=== PATIENT | male | born 1960 | race Caucasian/White ===

== ENCOUNTER 2018-11-03 04:12 | Emergency (ER) | payer BC, OTHER ==
[~2018-11-03] VITALS: Ht 167.6 cm; Wt 100.0 kg
[2018-11-03 04:20] VITALS: Ht 167.6 cm; Wt 100.0 kg
[2018-11-03] MEDS ORDERED: ATEN-51 PO (04:25)
[2018-11-03] MEDS ORDERED: ATENOLOL 25 MG TAB PO ONE (04:30)
--- NOTE | 2018-11-03 04:43 | ERD ---
ER Documentation Chief Complaint Chief Complaint Pt reports BP and anxiety has been elevated for last few days r/t family HPI Patient is a 57-year-old male with hypertension who presents feeling stressed. His son is sick in the emergency department as a patient as well and he is having "a difficult time coping". His also had an accident recently and he is caring for her as she is virtually disabled. He is also taking care of his 90-year-old mother. The patient has elevated blood pressure but has not been on blood pressure medications for the past 5 years. He used to take atenolol 25 mg daily. He does have a primary doctor but has not seen her in 5 years. ROS All systems reviewed and are negative except as per history of present illness. Medications Home Meds Active Scripts Atenolol* (Atenolol*) 25 Mg Tablet, 25 MG PO DAILY, #30 TAB Prov:AMENA CONNELL MD 11/03/18 PMhx/Soc Medical and Surgical Hx: pt denies Surgical Hx History of Surgery: No Anesthesia Reaction: No Hx Neurological Disorder: No Hx Respiratory Disorders: No Hx Cardiac Disorders: Yes (HTN) Hx Psychiatric Problems: No Hx Miscellaneous Medical Probl: No Hx Alcohol Use: Yes Hx Substance Use: No Hx Tobacco Use: Yes Smoking Status: Current every day smoker FmHx Family History: No diabetes Physical Exam Vitals Vital Signs Date Temp Pulse Resp B/P (MAP) Pulse Ox O2 O2 Flow FiO2 Time Delivery Rate 11/03/18 67 14 151/88 98 Room Air 04:49 (109) 11/03/18 98.6 71 16 151/88 99 04:20 (109) Physical Exam Const: No acute distress Head: Atraumatic Eyes: Normal Conjunctiva ENT: Normal External Ears, Nose and Mouth. Neck: Full range of motion. No meningismus. Resp: Clear to auscultation bilaterally Cardio: Regular rate and rhythm, no murmurs Abd: Soft, non tender, non distended. Normal bowel sounds Skin: No petechiae or rashes Back: No midline or flank tenderness Ext: No cyanosis, or edema Neur: Awake and alert Psych: Patient under stress but denies suicidal or homicidal ideation Results 24 hrs Current Medications Medications Dose Sig/Vik Start Time Status Last (Trade) Ordered Route PRN Stop Time Admin Dose Reason Admin Atenolol 25 mg ONCE ONCE 11/03/18 DC (Tenormin) PO 04:30 11/03/18 04:31 Procedures/MDM EKG read by me: Rate/Rhythm: Regular rate and rhythm at a rate of 72 Intervals: Normal Impression: Flipped T waves diffusely Smoking Cessation Therapy: Pt. was lectured for greater than 3 minutes on the health risks of continued smoking and the benefits of cessation. Patient is a 57-year-old male who presents with mild depression. I believe the patient is under a lot of stress at home caring for his family. His EKG does show diffuse flipped T waves but at this point I doubt acute coronary syndrome as the patient has no active chest pain or shortness of breath. Blood pressure was mildly elevated and the patient will be given atenolol at his usual dose that he used to be on. The patient will be given a prescription for daily atenolol as well. The patient can return for any worsening symptoms. I believe outpatient management is appropriate at this time. He should follow-up with his primary doctor within 1 week. Departure Diagnosis: Primary Impression: Stress at home Additional Impression: Hypertension Hypertension type: essential hypertension Qualified Codes: I10 - Essential (primary) hypertension Condition: Fair Patient Instructions: High Blood Pressure (Hypertension) Referrals: Your doctor Additional Instructions: Call your primary care doctor TOMORROW for an appointment during the next 1 WEEK.Tell the hospice patient care secretary that you were referred from this facility.See the doctor sooner or return here if your condition worsens before your appointment time. AMENA CONNELL MD Nov 03, 2018 04:43
[2018-11-03 05:35] VITALS: BP 111/77; PULSE 76; RESP 14
== END 2018-11-03 05:54 | disposition home or self-care (01) ==
LOC: E/R 04:12
DX: F43.9 Reaction to severe stress, unspecified (principal); I10 Essential (primary) hypertension; F17.210 Nicotine dependence, cigarettes, uncomplicated
CPT/HCPCS: 93005; Z7502; Z7610